=== PATIENT | female | born 1975 | race Caucasian/White ===

== ENCOUNTER → 2022-04-04 15:12 | Outpatient (POV) | payer SELFPAY | PROVIDERS: Visit Provider Dermatology | DX: Z00.00 Encounter for general adult medical examination without abnormal findings (principal) ==

== ENCOUNTER 2023-11-16 20:09 | Emergency (ER) | payer SELFPAY ==
[2023-11-16 20:10] VITALS: BP 144/93; PULSE 123; RESP 20; TEMP 37; O2SAT 97; BMI 24.7
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
[2023-11-16 20:31] VITALS: BP 144/93; PULSE 123; RESP 20; TEMP 37; O2SAT 99
== END 2023-11-16 20:33 | disposition home or self-care (01) ==
LOC: ER 20:31
PROVIDERS: Emergency Provider Emergency Medicine
DX: Z02.89 Encounter for other administrative examinations (principal)
CPT/HCPCS: 99281